=== PATIENT | male | born 1940 | race Caucasian/White ===

== ENCOUNTER 2016-12-19 12:06 | Emergency (ER) | payer MEDICARE, BC ==
[2016-12-19] MEDS ORDERED: Sodium Chloride 0.9% 10 ML Syringe FLUSH PRN (12:29)
[2016-12-19] MEDS ORDERED: Sodium Chloride 0.9% 1,000 ML IV SCH (12:30)
[2016-12-19 13:15] LABS: CHLORIDE,CL 103 mmol/L (98-107); SODIUM,NA 138 mmol/L (136-145)
--- NOTE | 2016-12-19 14:06 | EDM.PDOC ---
ED HPI GENERAL MEDICAL PROBLEM - General Chief Complaint: General Stated Complaint: DIZZY Time Seen by Provider: 12/19/16 12:18 Source of Information: Reports: Patient History Limitations: Reports: No Limitations - History of Present Illness INITIAL COMMENTS - FREE TEXT/NARRATIVE: Presents to the emergency room today with complaints of low blood pressure; reports systolic blood pressure to be in the 70s over 40s diastolically. He also states he had a fast heart rate in the 140s. His other complaint is that he had some lightheadedness. At the time of his presentation here all of these symptoms were resolved. 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 Medical history includes hypertension and diabetes type 2 which is medication and diet controlled. Patient denies recent illness, recent contact with anyone ill, denies any travel outside of the country. Patient at this time also denies shortness of breath, nausea, vomiting, denies abdominal pain, fever, chills. Additionally patient does describe some problems with constipation, but he does deny any blood in his urine or stool. Medications include lisinopril 2.5 mg daily and metformin 1000 mg in the morning 500 mg in the evening. He is also taking Januvia, Lipitor 20 mg, cinnamon 500mg, aspirin 81mg, glucosamine-chondroitin 750-600 mg and vitamin D3 1000 unit. Onset: Today, Sudden Duration: Resolved Prior to Arrival Severity: Mild Context: Reports: Activity - Related Data Allergies Allergy/AdvReac Type Severity Reaction Status Date / Time Unable to Assess Allergy Unverified 12/19/16 13:00 Home Meds: Home Meds . [Unable to Verify Home Med List] 12/19/16 [History] Past Medical History Cardiovascular History: Reports: Hypertension Endocrine/Metabolic History: Reports: Diabetes, Type II Social & Family History - Tobacco Use Smoking Status *Q: Unknown Ever Smoked ED ROS GENERAL - Review of Systems Review Of Systems: See Below Constitutional: Reports: No Symptoms HEENT: Reports: No Symptoms Respiratory: Reports: No Symptoms Cardiovascular: Reports: No Symptoms Endocrine: Reports: No Symptoms GI/Abdominal: Reports: No Symptoms : Reports: No Symptoms Musculoskeletal: Reports: No Symptoms Skin: Reports: No Symptoms Neurological: Reports: No Symptoms Psychiatric: Reports: No Symptoms Hematologic/Lymphatic: Reports: No Symptoms Immunologic: Reports: No Symptoms Free Text/Narrative/Comment: Reports all symptoms 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, GENERAL - Physical Exam Exam: See Below Exam Limited By: No Limitations General Appearance: Alert, WD/WN, No Apparent Distress Eye Exam: Bilateral Eye: EOMI, PERRL Ears: Normal TMs Nose: Normal Inspection Throat/Mouth: Normal Inspection, Normal Oropharynx Head: Atraumatic, Normocephalic Neck: Normal Inspection, Supple, Non-Tender, Full Range of Motion Respiratory/Chest: No Respiratory Distress, Lungs Clear, Normal Breath Sounds, No Accessory Muscle Use, Chest Non-Tender Cardiovascular: Normal Peripheral Pulses, Regular Rate, Rhythm, No Edema, No Gallop, No JVD, No Murmur, No Rub GI/Abdominal: Normal Bowel Sounds, Soft, Non-Tender, No Organomegaly, No Distention, No Abnormal Bruit, No Mass Back Exam: Normal Inspection, Full Range of Motion, NT Extremities: Normal Inspection, Normal Range of Motion, Non-Tender, Normal Capillary Refill, No Pedal Edema Neurological: Alert, Oriented, CN II-XII Intact, Normal Cognition, Normal Gait, Normal Reflexes, No Motor/Sensory Deficits Psychiatric: Normal Affect, Normal Mood Skin Exam: Warm, Dry, Intact, Normal Color, No Rash Lymphatic: No Adenopathy Course - Vital Signs Last Recorded V/S: Last Vital Signs Temp 36.7 C 12/19/16 12:10 Pulse 107 H 12/19/16 12:10 Resp 18 12/19/16 12:10 BP 113/77 12/19/16 12:10 Pulse Ox 97 12/19/16 12:10 - Orders/Labs/Meds Orders: Active Orders 24 hr Category Date Time Status EKG Documentation Completion [RC] ROUTINE Care 12/19/16 12:29 Ordered Chest 2V [CR] Stat Exams 12/19/16 12:29 Taken Sodium Chloride 0.9% @ 150 MLS/HR (1000ml) Med 12/19/16 12:30 Ordered Sodium Chloride 0.9% [Normal Saline] 1,000 ml IV ASDIRECTED Sodium Chloride 0.9% [Saline Flush] Med 12/19/16 12:29 Ordered 10 ml FLUSH ASDIRECTED PRN Saline Lock Insert [OM.PC] Routine Oth 12/19/16 12:29 Ordered Medication Orders Sodium Chloride (Normal Saline) 1,000 mls @ 150 mls/hr IV ASDIRECTED DASIA Last Admin: 12/19/16 13:26 Dose: 150 mls/hr Sodium Chloride (Saline Flush) 10 ml FLUSH ASDIRECTED PRN PRN Reason: Keep Vein Open Labs: Laboratory Tests 12/19/16 12/19/16 12/19/16 Range/Units 12:40 12:40 12:40 WBC 7.1 (4.0-10.0) x10^3/uL RBC 4.85 (4.5-6.0) x10^6/uL Hgb 12.9 L (14.0-18.0) g/dL Hct 38.9 L (40.0-52.0) % MCV 80.2 (78.0-93.0) fL MCH 26.6 (26.0-32.0) pg MCHC 33.2 (32.0-36.0) g/dL RDW Coeff of Andry 13.8 (10.0-15.0) % Plt Count 195 (130-400) x10^3/uL Neut % (Auto) 77.4 (50.0-80.0) % Lymph % (Auto) 15.4 L (25.0-50.0) % [place] % (Auto) 6.2 (2.0-11.0) % Eos % (Auto) 0.6 (0.0-4.0) % Baso % (Auto) 0.4 (0.2-1.2) % Sodium 138 (136-145) mmol/L Potassium 5.0 (3.5-5.1) mmol/L Chloride 103 (98-107) mmol/L Carbon Dioxide 28 (21-32) mmol/L BUN 17 (7-18) mg/dL Creatinine 1.0 (0.70-1.30) mg/dL Est Cr Clr Drug Dosing TNP Estimated GFR (MDRD) > 60 Glucose 283 H (74-106) mg/dL Hemoglobin A1c 8.6 H (4.5-6.2) % Lactic Acid (0.4-2.0) mmol/L Calcium 9.3 (8.5-10.1) mg/dL Corrected Calcium 9.54 (8.5-10.1) mg/dL Total Bilirubin 0.5 (0.2-1.0) mg/dL AST 15 (15-37) U/L ALT 24 (16-63) U/L Alkaline Phosphatase 103 (46-116) U/L Troponin I < 0.017 (<=0.056) ng/mL NT-Pro-B Natriuret Pep 131 (<=450) pg/mL Total Protein 7.1 (6.4-8.2) g/dL Albumin 3.7 (3.4-5.0) g/dL Globulin 3.4 Albumin/Globulin Ratio 1.09 TSH, Ultra Sensitive 0.762 (0.358-3.74) uIU/mL Urine Color (YELLOW) Urine Appearance (CLEAR) Urine pH (5.0-8.0) Ur Specific [place] Urine Protein (NEGATIVE) mg/dL Urine Glucose (UA) (NEGATIVE) mg/dL Urine Ketones (NEGATIVE) mg/dL Urine Occult Blood (NEGATIVE) Urine Nitrite (NEGATIVE) Urine Bilirubin (NEGATIVE) Urine Urobilinogen (0.2) EU/dL Ur Leukocyte Esterase (NEGATIVE) Urine RBC (NOT SEEN) /HPF Urine WBC (NOT SEEN) /HPF Ur Squamous Epith Cells (NEGATIVE) /HPF Urine Bacteria (NEGATIVE) /HPF Urine Mucus (NEGATIVE) /LPF 12/19/16 12/19/16 Range/Units 13:00 13:23 WBC (4.0-10.0) x10^3/uL RBC (4.5-6.0) x10^6/uL Hgb (14.0-18.0) g/dL Hct (40.0-52.0) % MCV (78.0-93.0) fL MCH (26.0-32.0) pg MCHC (32.0-36.0) g/dL RDW Coeff of Andry (10.0-15.0) % Plt Count (130-400) x10^3/uL Neut % (Auto) (50.0-80.0) % Lymph % (Auto) (25.0-50.0) % [place] % (Auto) (2.0-11.0) % Eos % (Auto) (0.0-4.0) % Baso % (Auto) (0.2-1.2) % Sodium (136-145) mmol/L Potassium (3.5-5.1) mmol/L Chloride (98-107) mmol/L Carbon Dioxide (21-32) mmol/L BUN (7-18) mg/dL Creatinine (0.70-1.30) mg/dL Est Cr Clr Drug Dosing Estimated GFR (MDRD) Glucose (74-106) mg/dL Hemoglobin A1c (4.5-6.2) % Lactic Acid 1.3 (0.4-2.0) mmol/L Calcium (8.5-10.1) mg/dL Corrected Calcium (8.5-10.1) mg/dL Total Bilirubin (0.2-1.0) mg/dL AST (15-37) U/L ALT (16-63) U/L Alkaline Phosphatase (46-116) U/L Troponin I (<=0.056) ng/mL NT-Pro-B Natriuret Pep (<=450) pg/mL Total Protein (6.4-8.2) g/dL Albumin (3.4-5.0) g/dL Globulin Albumin/Globulin Ratio TSH, Ultra Sensitive (0.358-3.74) uIU/mL Urine Color Dark yellow H (YELLOW) Urine Appearance Slightly cloudy H (CLEAR) Urine pH 5.5 (5.0-8.0) Ur Specific [place] 1.020 Urine Protein Negative (NEGATIVE) mg/dL Urine Glucose (UA) 500 H (NEGATIVE) mg/dL Urine Ketones Negative (NEGATIVE) mg/dL Urine Occult Blood Negative (NEGATIVE) Urine Nitrite Negative (NEGATIVE) Urine Bilirubin Negative (NEGATIVE) Urine Urobilinogen 0.2 (0.2) EU/dL Ur Leukocyte Esterase Negative (NEGATIVE) Urine RBC 0-5 (NOT SEEN) /HPF Urine WBC 0-5 (NOT SEEN) /HPF Ur Squamous Epith Cells Not seen (NEGATIVE) /HPF Urine Bacteria Rare (NEGATIVE) /HPF Urine Mucus Moderate H (NEGATIVE) /LPF Meds: Medications Generic Name Dose Route Start Last Admin Trade Name Freq PRN Reason Stop Dose Admin Sodium Chloride 1,000 mls @ 150 mls/hr 12/19/16 12:30 12/19/16 13:26 Normal Saline IV 150 mls/hr ASDIRECTED DASIA Administration Sodium Chloride 10 ml 12/19/16 12:29 Saline Flush FLUSH ASDIRECTED PRN Keep Vein Open Departure - Departure Time of Disposition: 14:17 Disposition: Home, Self-Care 01 Condition: Good Clinical Impression: Hypotension, Tachycardia - Discharge Information Instructions: Hypotension, [id number], Hypoglycemia, [id number], Diet for Metabolic Syndrome Additional Instructions: Follow up with your primary provider as needed for any additional symptoms. Make sure to eat in the morning before going out into the field. You ECG and Chest X-ray were non contributory to your symptoms today. Your labwork was normal with the exception of glucose in your urine, blood sugar of 284, and your hemoglobin A1C of 8.4. These are expected results in the setting of someone with known diabetes. Please call us if you have any further questions or concerns. - Problem List & Annotations (1) Hypotension SNOMED Code(s): 80107683 Code(s): I95.9 - HYPOTENSION, UNSPECIFIED Status: Acute Priority: Low Current Visit: Yes Qualifiers: Hypotension type: unspecified hypotension type Qualified Code(s): I95.9 - Hypotension, unspecified (2) Tachycardia SNOMED Code(s): 9700510 Code(s): R00.0 - TACHYCARDIA, UNSPECIFIED Status: Acute Priority: Low Current Visit: Yes - Problem List Review Problem List Initiated/Reviewed/Updated: Yes - My Orders Last 24 Hours: My Active Orders 12/19/16 12:29 EKG Documentation Completion [RC] ROUTINE Chest 2V [CR] Stat Sodium Chloride 0.9% [Saline Flush] 10 ml FLUSH ASDIRECTED PRN Saline Lock Insert [OM.PC] Routine 12/19/16 12:30 Sodium Chloride 0.9% @ 150 MLS/HR (1000ml) Sodium Chloride 0.9% [Normal Saline] 1,000 ml IV ASDIRECTED - Assessment/Plan Last 24 Hours: My Active Orders 12/19/16 12:29 EKG Documentation Completion [RC] ROUTINE Chest 2V [CR] Stat Sodium Chloride 0.9% [Saline Flush] 10 ml FLUSH ASDIRECTED PRN Saline Lock Insert [OM.PC] Routine 12/19/16 12:30 Sodium Chloride 0.9% @ 150 MLS/HR (1000ml) Sodium Chloride 0.9% [Normal Saline] 1,000 ml IV ASDIRECTED Assessment:: hypotension tachycardia Plan: Follow up with your primary provider as needed for any additional symptoms. Make sure to eat in the morning before going out into the field. You ECG and Chest X-ray were non contributory to your symptoms today. Your labwork was normal with the exception of glucose in your urine, blood sugar of 284, and your hemoglobin A1C of 8.4. These are expected results in the setting of someone with known diabetes. Please call us if you have any further questions or concerns.
== END 2016-12-19 14:25 | disposition home or self-care (01) ==
LOC: VM.ED 12:06
DX: I95.9 Hypotension, unspecified (principal); R00.0 Tachycardia, unspecified; I10 Essential (primary) hypertension; E11.9 Type 2 diabetes mellitus without complications
CPT/HCPCS: 36415; 71020; 80053; 81001; 83036; 83605; 83880; 84443; 84484; 85025; 93005; 96360; 99284; J7030

== ENCOUNTER 2019-04-10 12:08 | Emergency (ER) | payer MEDICARE, BC ==
--- NOTE | 2019-04-10 13:16 | EDM.PDOC ---
ED HPI GENERAL MEDICAL PROBLEM - General Chief Complaint: Cardiovascular Problem Stated Complaint: NOT FEELING WELL;HIGH BP Time Seen by Provider: 04/10/19 12:20 Source of Information: Reports: Patient, Family History Limitations: Reports: No Limitations - History of Present Illness INITIAL COMMENTS - FREE TEXT/NARRATIVE: Pt. presents to ER with complaints of lightheadedness. He states that he checked his blood pressure at home today when he was feeling lightheaded and states that his BP was 179/110 with a heart rate in the 140 range on his home BP monitor. He states that he is not currently taking any antihypertensives. He states that he is more lightheaded when he goes from sitting to standing and lying to sitting. Denies any recent illness. No fever or chills. No chest pain or shortness of breath. No nausea, vomiting, or diarrhea. No palpitation. Pt. denies any headache. No numbness/tingling in extremities/face. No trouble with speech or ambulation. He states that, by the time he arrived to [facility], he was feeling somewhat better. Onset: Today Location: Reports: Generalized Associated Symptoms: Denies: Confusion, Chest Pain, Cough, Diaphoresis, Fever/ Chills, Headaches, Malaise, Nausea/Vomiting, Rash, Seizure, Shortness of Breath , Syncope, Weakness - Related Data Allergies Allergy/AdvReac Type Severity Reaction Status Date / Time simvastatin Allergy Cannot Verified 04/10/19 12:28 Remember Home Meds: Home Meds Aspirin 81 mg PO DAILY 12/19/16 [History] Cholecalciferol (Vitamin D3) [Vitamin D3] 1,000 unit PO DAILY 12/19/16 [History] Cinnamon Bark [Cinnamon] 500 mg PO DAILY 12/19/16 [History] Glucosam/Chond/Collagen/Hyalur [Glucosamine Chondroitin] 1 each PO DAILY [History] SitaGLIPtin [Januvia] 100 mg PO DAILY 12/19/16 [History] metFORMIN [Glucophage XR] 1,000 mg PO ACBREAKFAST 12/19/16 [History] metFORMIN [Glucophage XR] 500 mg PO ACDINNER 12/19/16 [History] Past Medical History Cardiovascular History: Reports: High Cholesterol, Hypertension Endocrine/Metabolic History: Reports: Diabetes, Type II Social & Family History - Tobacco Use Smoking Status *Q: Unknown Ever Smoked ED ROS GENERAL - Review of Systems Review Of Systems: See Below Constitutional: Reports: No Symptoms HEENT: Reports: No Symptoms Respiratory: Reports: No Symptoms Cardiovascular: Reports: Lightheadedness Endocrine: Reports: No Symptoms GI/Abdominal: Reports: No Symptoms : Reports: No Symptoms Musculoskeletal: Reports: No Symptoms Skin: Reports: No Symptoms Neurological: Reports: No Symptoms Psychiatric: Reports: No Symptoms Hematologic/Lymphatic: Reports: No Symptoms Immunologic: Reports: No Symptoms ED EXAM, GENERAL - Physical Exam Exam: See Below Exam Limited By: No Limitations General Appearance: Alert, WD/WN, No Apparent Distress Eye Exam: Bilateral Eye: EOMI, Normal Fundi, Normal Inspection, PERRL Nose: Normal Inspection, Normal Mucosa, No Blood Throat/Mouth: Normal Inspection, Normal Lips, Normal Gums, Normal Oropharynx, Normal Voice, No Airway Compromise Head: Atraumatic, Normocephalic Neck: Normal Inspection, Supple, Non-Tender, Full Range of Motion Respiratory/Chest: No Respiratory Distress, Lungs Clear, Normal Breath Sounds, No Accessory Muscle Use, Chest Non-Tender Cardiovascular: Normal Peripheral Pulses, Regular Rate, Rhythm, No Edema, No Gallop, No JVD, No Murmur Peripheral Pulses: 4+: Radial (L) GI/Abdominal: Normal Bowel Sounds, Soft, Non-Tender, No Organomegaly, No Distention, No Mass, Pelvis Stable (Male) Exam: Deferred Rectal (Males) Exam: Deferred Back Exam: Normal Inspection, Full Range of Motion Extremities: Normal Inspection, Normal Range of Motion, Non-Tender, No Pedal Edema, Normal Capillary Refill Neurological: Alert, Oriented, CN II-XII Intact, Normal Cognition, Normal Gait, Normal Reflexes, No Motor/Sensory Deficits Psychiatric: Normal Affect, Normal Mood Skin Exam: Warm, Dry, Intact, Normal Color, No Rash Lymphatic: No Adenopathy EKG INTERPRETATION Rhythm: NSR [place]: Normal P-Wave: Present QRS: LBBB (Borderline LBBB, unchanged from previous EKG in 2017) ST-T: Normal QT: Normal Course - Vital Signs Last Recorded V/S: Last Vital Signs Temp 36.6 C 04/10/19 13:30 Pulse 88 04/10/19 13:30 Resp 16 04/10/19 13:30 BP 135/82 04/10/19 13:30 Pulse Ox 97 04/10/19 13:30 - Orders/Labs/Meds Orders: Active Orders 24 hr Category Date Time Status EKG Documentation Completion [RC] STAT Care 04/10/19 12:40 Active Labs: Laboratory Tests 04/10/19 04/10/19 04/10/19 Range/Units 12:57 12:59 12:59 WBC 7.5 (4.0-10.0) x10^3/uL RBC 5.28 (4.5-6.0) x10^6/uL Hgb 13.4 L (14.0-18.0) g/dL Hct 41.1 (40.0-52.0) % MCV 77.8 L (78.0-93.0) fL MCH 25.4 L (26.0-32.0) pg MCHC 32.6 (32.0-36.0) g/dL RDW Coeff of Andry 14.9 (10.0-15.0) % Plt Count 270 D (130-400) x10^3/uL Neut % (Auto) 78.3 (50.0-80.0) % Lymph % (Auto) 13.6 L (25.0-50.0) % [place] % (Auto) 6.8 (2.0-11.0) % Eos % (Auto) 0.8 (0.0-4.0) % Baso % (Auto) 0.5 (0.2-1.2) % PT 9.9 L (10.0-12.8) SEC INR 0.9 L (2.0-3.5) Sodium (136-145) mmol/L Potassium (3.5-5.1) mmol/L Chloride (98-107) mmol/L Carbon Dioxide (21-32) mmol/L Anion Gap (10-20) mmol/L BUN (7-18) mg/dL Creatinine (0.70-1.30) mg/dL Est Cr Clr Drug Dosing Estimated GFR (MDRD) Glucose (74-106) mg/dL Calcium (8.5-10.1) mg/dL Corrected Calcium (8.5-10.1) mg/dL Phosphorus (2.6-4.7) mg/dL Magnesium (1.8-2.4) mg/dL Total Bilirubin (0.2-1.0) mg/dL AST (15-37) U/L ALT (16-63) U/L Alkaline Phosphatase (46-116) U/L Troponin I (<=0.056) ng/mL NT-Pro-B Natriuret Pep (<=450) pg/mL Total Protein (6.4-8.2) g/dL Albumin (3.4-5.0) g/dL Globulin Albumin/Globulin Ratio TSH, Ultra Sensitive (0.358-3.74) uIU/mL Urine Color Yellow (YELLOW) Urine Appearance Slightly cloudy H (CLEAR) Urine pH 5.5 (5.0-8.0) Ur Specific [place] >=1.030 Urine Protein Negative (NEGATIVE) mg/dL Urine Glucose (UA) 250 H (NEGATIVE) mg/dL Urine Ketones Negative (NEGATIVE) mg/dL Urine Occult Blood Negative (NEGATIVE) Urine Nitrite Negative (NEGATIVE) Urine Bilirubin Negative (NEGATIVE) Urine Urobilinogen 0.2 (0.2) EU/dL Ur Leukocyte Esterase Negative (NEGATIVE) Urine RBC 0-5 (NOT SEEN) /HPF Urine WBC Not seen (NOT SEEN) /HPF Ur Squamous Epith Cells Not seen (NEGATIVE) /HPF Urine Bacteria Rare (NEGATIVE) /HPF Hyaline Casts Few H (NEGATIVE) /HPF Urine Mucus Moderate H (NEGATIVE) /LPF 04/10/19 Range/Units 12:59 WBC (4.0-10.0) x10^3/uL RBC (4.5-6.0) x10^6/uL Hgb (14.0-18.0) g/dL Hct (40.0-52.0) % MCV (78.0-93.0) fL MCH (26.0-32.0) pg MCHC (32.0-36.0) g/dL RDW Coeff of Andry (10.0-15.0) % Plt Count (130-400) x10^3/uL Neut % (Auto) (50.0-80.0) % Lymph % (Auto) (25.0-50.0) % [place] % (Auto) (2.0-11.0) % Eos % (Auto) (0.0-4.0) % Baso % (Auto) (0.2-1.2) % PT (10.0-12.8) SEC INR (2.0-3.5) Sodium 140 (136-145) mmol/L Potassium 5.0 (3.5-5.1) mmol/L Chloride 101 (98-107) mmol/L Carbon Dioxide 29 (21-32) mmol/L Anion Gap 15.0 (10-20) mmol/L BUN 15 (7-18) mg/dL Creatinine 1.1 (0.70-1.30) mg/dL Est Cr Clr Drug Dosing TNP Estimated GFR (MDRD) > 60 Glucose 202 H (74-106) mg/dL Calcium 9.0 (8.5-10.1) mg/dL Corrected Calcium 9.16 (8.5-10.1) mg/dL Phosphorus 3.3 (2.6-4.7) mg/dL Magnesium 2.0 (1.8-2.4) mg/dL Total Bilirubin 0.5 (0.2-1.0) mg/dL AST 15 (15-37) U/L ALT 20 (16-63) U/L Alkaline Phosphatase 136 H (46-116) U/L Troponin I < 0.017 (<=0.056) ng/mL NT-Pro-B Natriuret Pep 375 (<=450) pg/mL Total Protein 8.0 (6.4-8.2) g/dL Albumin 3.8 (3.4-5.0) g/dL Globulin 4.2 Albumin/Globulin Ratio 0.90 TSH, Ultra Sensitive 1.085 (0.358-3.74) uIU/mL Urine Color (YELLOW) Urine Appearance (CLEAR) Urine pH (5.0-8.0) Ur Specific [place] Urine Protein (NEGATIVE) mg/dL Urine Glucose (UA) (NEGATIVE) mg/dL Urine Ketones (NEGATIVE) mg/dL Urine Occult Blood (NEGATIVE) Urine Nitrite (NEGATIVE) Urine Bilirubin (NEGATIVE) Urine Urobilinogen (0.2) EU/dL Ur Leukocyte Esterase (NEGATIVE) Urine RBC (NOT SEEN) /HPF Urine WBC (NOT SEEN) /HPF Ur Squamous Epith Cells (NEGATIVE) /HPF Urine Bacteria (NEGATIVE) /HPF Hyaline Casts (NEGATIVE) /HPF Urine Mucus (NEGATIVE) /LPF - Radiology Interpretation Free Text/Narrative:: Chest x-ray negative for acute pathology Departure - Departure Time of Disposition: 15:00 Disposition: Home, Self-Care 01 Clinical Impression: Dehydration Instructions: Dehydration, Adult, [id number] Referrals: Chris Minaya MD [Primary Care Provider] - Forms: ED Department Discharge Additional Instructions: Home to rest. Drink plenty of fluids. Return to ER if you have chest pain, shortness of breath, or other worrisome signs/symptoms. Recheck in clinic in 1 week. Sepsis Event Note - Evaluation Sepsis Screening Result: No Definite Risk - Focused Exam Vital Signs: Vital Signs Temp Pulse Resp BP Pulse Ox 04/10/19 13:30 36.6 C 88 16 135/82 97 04/10/19 12:12 36.9 C 90 18 122/72 98 Date Exam was Performed: 04/10/19 Time Exam was Performed: 16:35 - Problem List Review Problem List Initiated/Reviewed/Updated: Yes - My Orders Last 24 Hours: My Active Orders 04/10/19 12:40 EKG Documentation Completion [RC] STAT - Assessment/Plan Last 24 Hours: My Active Orders 04/10/19 12:40 EKG Documentation Completion [RC] STAT Plan: Pt. was observed and discharged. Labs were all within normal limits. Troponin was negative. EKG was normal. His urine spec gravity was 1.030 and his oral mucosa was somewhat dry. It appears he is dehydrated. He is not experiencing any nausea, vomiting, or diarrhea so we will allow him to rehydrate orally. Recheck in clinic in 1 week. Return if he has chest pain, shortness of breath, palpitations or other worrisome signs/symptoms.
--- NOTE | 2019-04-10 13:20 | CR ---
[id number] RAD/RAD Chest PA And Lateral EXAM: RAD Chest PA And Lateral INDICATION: SYNCOPE, BRADYCARDIA COMPARISON: December 19, 2016. DISCUSSION: Cardiomediastinal silhouette is normal in size and contour. No infiltrate, effusion, pneumothorax, or edema. Pulmonary hyperinflation. IMPRESSION: No significant cardiopulmonary abnormality. Shaquille Shi DO 04/10/19 1319 Thank you for allowing us to participate in the care of your patient.
[2019-04-10 13:36] LABS: CHLORIDE,CL 101 mmol/L (98-107); SODIUM,NA 140 mmol/L (136-145)
== END 2019-04-10 13:51 | disposition home or self-care (01) ==
LOC: VM.ED 12:08
DX: E86.0 Dehydration (principal); I10 Essential (primary) hypertension; E11.9 Type 2 diabetes mellitus without complications; E78.00 Pure hypercholesterolemia, unspecified; Z79.82 Long term (current) use of aspirin; Z79.84 Long term (current) use of oral hypoglycemic drugs; Z79.899 Other long term (current) drug therapy
CPT/HCPCS: 36415; 71046; 80053; 81001; 83735; 83880; 84100; 84443; 84484; 85025; 85610; 93005; 93010; 99284-25; 99284-GF

== ENCOUNTER 2019-10-04 15:23 | Emergency (ER) | payer MEDICARE, BC ==
--- NOTE | 2019-10-04 16:14 | EDM.PDOC ---
ED HPI GENERAL MEDICAL PROBLEM - General Chief Complaint: ENT Problem Stated Complaint: PART OF HEARING AID STUCK IN EAR Time Seen by Provider: 10/04/19 16:00 Source of Information: Reports: Patient History Limitations: Reports: No Limitations - History of Present Illness INITIAL COMMENTS - FREE TEXT/NARRATIVE: Patient presents to ER with a portion of his hearing aide stuck in his right ear. States took his aides out a few hours ago and noted the rubber portion was not intact and felt still present in ear. could visualize but did not have anything at home in order to remove it. No other concerns. Onset: Today, Sudden Duration: Hour(s): Location: Reports: Head Associated Symptoms: Reports: No Other Symptoms - Related Data Allergies Allergy/AdvReac Type Severity Reaction Status Date / Time simvastatin Allergy Cannot Verified 04/10/19 12:28 Remember Home Meds: Home Meds Aspirin 81 mg PO DAILY 12/19/16 [History] Cholecalciferol (Vitamin D3) [Vitamin D3] 1,000 unit PO DAILY 12/19/16 [History] Cinnamon Bark [Cinnamon] 500 mg PO DAILY 12/19/16 [History] Glucosam/Chond/Collagen/Hyalur [Glucosamine Chondroitin] 1 each PO DAILY 12/19/16 [History] SitaGLIPtin [Januvia] 100 mg PO DAILY 12/19/16 [History] metFORMIN [Glucophage XR] 1,000 mg PO ACBREAKFAST 12/19/16 [History] metFORMIN [Glucophage XR] 500 mg PO ACDINNER 12/19/16 [History] Past Medical History Cardiovascular History: Reports: High Cholesterol, Hypertension Endocrine/Metabolic History: Reports: Diabetes, Type II Social & Family History - Tobacco Use Smoking Status *Q: Unknown Ever Smoked ED ROS ENT - Review of Systems Review Of Systems: Comprehensive ROS is negative, except as noted in HPI. ED EXAM, ENT - Physical Exam Exam: See Below Exam Limited By: No Limitations General Appearance: Alert, WD/WN, No Apparent Distress Ears: Normal TMs (to left ear), Canal Foreign Body (had rubber tip lodged in to right ear canal. Removed without incident with alligator forcep. Patient tolerated well) Neurological: Alert, Oriented Skin: Warm, Dry Departure - Departure Time of Disposition: 16:13 Disposition: Home, Self-Care 01 Condition: Good Clinical Impression: Foreign body in ear - Discharge Information *PRESCRIPTION DRUG MONITORING PROGRAM REVIEWED*: No *COPY OF PRESCRIPTION DRUG MONITORING REPORT IN PATIENT CLAUDIA: No Instructions: Ear Foreign Body, [id number] Referrals: Chris Minaya MD [Primary Care Provider] - Forms: ED Department Discharge Additional Instructions: 1. Rinse ear with water as needed due to irritation caused by removal of foreign body. 2. Notify primary care provider of any increase in pain or drainage from ear
== END 2019-10-04 16:24 | disposition home or self-care (01) ==
LOC: VM.ED 15:23
DX: T16.1XXA Foreign body in right ear, initial encounter (principal); I10 Essential (primary) hypertension; E11.9 Type 2 diabetes mellitus without complications; Z88.8 Allergy status to other drugs, medicaments and biological substances; Z79.82 Long term (current) use of aspirin; Z79.899 Other long term (current) drug therapy; Z79.84 Long term (current) use of oral hypoglycemic drugs
CPT/HCPCS: 99282; 99283-GF

== ENCOUNTER 2020-12-13 13:23 | Observation (INO) | payer MEDICARE, BC ==
[2020-12-13] MEDS ORDERED: Sodium Chloride 0.9% 10 ML Syringe FLUSH PRN (13:39)
--- NOTE | 2020-12-13 14:06 | CR ---
[id number] RAD/RAD Chest Portable EXAM: RAD Chest Portable INDICATION: PALPITATIONS COMPARISON: April 10, 2019. DISCUSSION/IMPRESSION: Cardiomediastinal silhouette is normal in size and contour. Lungs are clear. No pleural effusion or pneumothorax. Per Brandon MD 12/13/20 [id number] Thank you for allowing us to participate in the care of your patient.
[2020-12-13 14:25] LABS: ANION GAP 17.6 mmol/L (5-15); CHLORIDE,CL 105 mmol/L (98-107); SODIUM,NA 140 mmol/L (136-145)
--- NOTE | 2020-12-13 16:30 | EDM.PDOC ---
ED HPI GENERAL MEDICAL PROBLEM - General Chief Complaint: Cardiovascular Problem Stated Complaint: HEART PULSE HIGH Time Seen by Provider: 12/13/20 13:25 Source of Information: Reports: Patient History Limitations: Reports: No Limitations - History of Present Illness INITIAL COMMENTS - FREE TEXT/NARRATIVE: Pt. has had intermittent episodes of racing heart today. He states that he used his 's blood pressure machine today when this was happening and his heart rate read 140. He was experiencing some lightheadedness with this. He denies any chest pain but was short of breath with exertion when the palpitations were happening. He was experiencing some palpitations on arrival to ER. EKG was performed by nursing and pt. was found in a narrow complex tachycardia at a rate of 140. He subsequently converted back to a sinus rhythm at 80-90 without intervention and remained in this rhythm during the remainder of his stay in ER. Pt. PCP is Dr. Gómez Minaya in [place]. He has a history of non-ischemic cardiomyopathy. He is followed by Dr. Collazo. Last echo showed EF of approx. 40-45%. Currently, pt. denies any chest pain, shortness of breath, lightheadedness, palpitations, increased peripheral edema, nausea, vomiting, or weakness. No recent fever or chills. He has had both moderna vaccinations. Onset: Today Onset Date: 12/13/20 Location: Reports: Chest, Generalized - Related Data Allergies Allergy/AdvReac Type Severity Reaction Status Date / Time simvastatin Allergy Cannot Verified 10/04/19 18:40 Remember Home Meds: Home Meds Aspirin 81 mg PO DAILY 12/19/16 [History] Cholecalciferol (Vitamin D3) [Vitamin D3] 1,000 unit PO DAILY 12/19/16 [History] Cinnamon Bark [Cinnamon] 500 mg PO DAILY 12/19/16 [History] SitaGLIPtin [Januvia] 100 mg PO DAILY 12/19/16 [History] metFORMIN [Glucophage XR] 1,000 mg PO ACBREAKFAST 12/19/16 [History] metFORMIN [Glucophage XR] 500 mg PO ACDINNER 12/19/16 [History] Olopatadine [Pataday 0.2% Ophth Soln] 1 drop EYEBOTH BEDTIME 12/13/20 [History] atorvaSTATin [Lipitor] 20 mg PO BEDTIME 12/13/20 [History] carvediloL [Coreg] 3.125 mg PO BID 12/13/20 [History] Past Medical History Cardiovascular History: Reports: High Cholesterol, Hypertension Endocrine/Metabolic History: Reports: Diabetes, Type II - Infectious Disease History Infectious Disease History: Reports: None Social & Family History - Tobacco Use Tobacco Use Status *Q: Never Tobacco User - Recreational Drug Use Recreational Drug Use: No ED ROS GENERAL - Review of Systems Review Of Systems: See Below Constitutional: Reports: No Symptoms HEENT: Reports: No Symptoms Respiratory: Reports: Shortness of Breath (with exertion) Cardiovascular: Reports: Lightheadedness, Palpitations Endocrine: Reports: No Symptoms GI/Abdominal: Reports: No Symptoms : Reports: No Symptoms Musculoskeletal: Reports: No Symptoms Skin: Reports: No Symptoms Neurological: Reports: No Symptoms Psychiatric: Reports: No Symptoms Hematologic/Lymphatic: Reports: No Symptoms Immunologic: Reports: No Symptoms ED EXAM, GENERAL - Physical Exam Exam: See Below Exam Limited By: No Limitations General Appearance: Alert, WD/WN, No Apparent Distress Throat/Mouth: Normal Inspection, Normal Lips, Normal Teeth, Normal Gums, Normal Oropharynx, Normal Voice, No Airway Compromise Head: Atraumatic, Normocephalic Neck: Normal Inspection, Supple, Non-Tender, Full Range of Motion Respiratory/Chest: No Respiratory Distress, Lungs Clear, Normal Breath Sounds, No Accessory Muscle Use, Chest Non-Tender Cardiovascular: Normal Peripheral Pulses, Regular Rate, Rhythm, No Edema, No JVD, No Murmur GI/Abdominal: Normal Bowel Sounds, Soft, Non-Tender, No Organomegaly, No Distention, No Mass (Male) Exam: Deferred Rectal (Males) Exam: Deferred Back Exam: Normal Inspection, Full Range of Motion Extremities: Normal Inspection, Normal Range of Motion, Non-Tender, No Pedal Edema, Normal Capillary Refill Neurological: Alert, Oriented, CN II-XII Intact, Normal Cognition, No Motor/Sensory Deficits Psychiatric: Normal Affect, Normal Mood Skin Exam: Warm, Dry, Intact, Normal Color, No Rash Lymphatic: No Adenopathy #1 Interpretation Comparison: Change From Previous EKG EKG Interpretation Comments: SVT vs. junctional tach Course - Vital Signs Last Recorded V/S: Last Vital Signs Temp 36.0 C L 12/13/20 13:25 Pulse 144 H 12/13/20 13:25 Resp 16 12/13/20 13:25 BP 149/82 H 12/13/20 13:25 Pulse Ox 98 12/13/20 13:25 - Orders/Labs/Meds Orders: Active Orders 24 hr Category Date Time Status Patient Status [ADT] Routine ADT 12/13/20 15:58 Active CORONAVIRUS COVID-19 RAPID [MOLEC] Stat Lab 12/13/20 16:01 Received Sodium Chloride 0.9% [Saline Flush] Med 12/13/20 13:39 Active 10 ml FLUSH ASDIRECTED PRN Peripheral IV Insertion Adult [OM.PC] Routine Oth 12/13/20 13:40 Ordered Medication Orders Sodium Chloride (Sodium Chloride 0.9% 10 Ml Syringe) 10 ml FLUSH ASDIRECTED PRN PRN Reason: Keep Vein Open Labs: Laboratory Tests 12/13/20 12/13/20 12/13/20 Range/Units 13:40 13:40 13:40 WBC 6.7 (4.0-10.0) x10^3/uL RBC 4.89 (4.5-6.0) x10^6/uL Hgb 13.0 L (14.0-18.0) g/dL Hct 38.7 L (40.0-52.0) % MCV 79.1 (78.0-93.0) fL MCH 26.6 (26.0-32.0) pg MCHC 33.6 (32.0-36.0) g/dL RDW Coeff of Andry 14.3 (10.0-15.0) % Plt Count 220 (130-400) x10^3/uL Immature Gran % (Auto) 0.10 (0.00-0.43) % Neut % (Auto) 67.6 (50.0-80.0) % Lymph % (Auto) 21.0 L (25.0-50.0) % [place] % (Auto) 9.1 (2.0-11.0) % Eos % (Auto) 1.8 (0.0-4.0) % Baso % (Auto) 0.4 (0.2-1.2) % Neut # (Auto) 4.5 (1.8-7.7) x10^3/uL Lymph # (Auto) 1.4 (1.0-4.8) x10^3/uL [place] # (Auto) 0.6 (0.0-0.8) x10^3/uL Eos # (Auto) 0.1 (0.0-0.5) x10^3/uL Baso # (Auto) 0.0 (0.0-0.2) x10^3/uL Immature Gran # (Auto) 0.01 (0.00-0.07) x10^3/uL PT 10.4 (9.9-12.5) SEC INR 0.9 L (2.0-3.5) APTT (25.6-32.8) SEC Sodium 140 (136-145) mmol/L Potassium 4.6 (3.5-5.1) mmol/L Chloride 105 (98-107) mmol/L Carbon Dioxide 22 (21-32) mmol/L Anion Gap 17.6 H (5-15) mmol/L BUN 14 (7-18) mg/dL Creatinine 0.9 (0.70-1.30) mg/dL Est Cr Clr Drug Dosing TNP Estimated GFR (MDRD) > 60 Glucose 184 H (70-99) mg/dL Calcium 9.1 (8.5-10.1) mg/dL Corrected Calcium 9.3 (8.5-10.1) mg/dL Phosphorus 3.9 (2.6-4.7) mg/dL Magnesium 2.0 (1.8-2.4) mg/dL Total Bilirubin 0.5 (0.2-1.0) mg/dL AST 16 (15-37) U/L ALT 19 (16-63) U/L Alkaline Phosphatase 99 (46-116) U/L Troponin I High Sens 11 (<=76) ng/L C-Reactive Protein < 0.2 (<=0.9) mg/dL NT-Pro-B Natriuret Pep 546 H (<=450) pg/mL Total Protein 7.2 (6.4-8.2) g/dL Albumin 3.8 (3.4-5.0) g/dL Globulin 3.4 Albumin/Globulin Ratio 1.12 TSH, Ultra Sensitive 1.063 (0.358-3.74) uIU/mL 12/13/20 Range/Units 13:40 WBC (4.0-10.0) x10^3/uL RBC (4.5-6.0) x10^6/uL Hgb (14.0-18.0) g/dL Hct (40.0-52.0) % MCV (78.0-93.0) fL MCH (26.0-32.0) pg MCHC (32.0-36.0) g/dL RDW Coeff of Andry (10.0-15.0) % Plt Count (130-400) x10^3/uL Immature Gran % (Auto) (0.00-0.43) % Neut % (Auto) (50.0-80.0) % Lymph % (Auto) (25.0-50.0) % [place] % (Auto) (2.0-11.0) % Eos % (Auto) (0.0-4.0) % Baso % (Auto) (0.2-1.2) % Neut # (Auto) (1.8-7.7) x10^3/uL Lymph # (Auto) (1.0-4.8) x10^3/uL [place] # (Auto) (0.0-0.8) x10^3/uL Eos # (Auto) (0.0-0.5) x10^3/uL Baso # (Auto) (0.0-0.2) x10^3/uL Immature Gran # (Auto) (0.00-0.07) x10^3/uL PT (9.9-12.5) SEC INR (2.0-3.5) APTT 25.6 (25.6-32.8) SEC Sodium (136-145) mmol/L Potassium (3.5-5.1) mmol/L Chloride (98-107) mmol/L Carbon Dioxide (21-32) mmol/L Anion Gap (5-15) mmol/L BUN (7-18) mg/dL Creatinine (0.70-1.30) mg/dL Est Cr Clr Drug Dosing Estimated GFR (MDRD) Glucose (70-99) mg/dL Calcium (8.5-10.1) mg/dL Corrected Calcium (8.5-10.1) mg/dL Phosphorus (2.6-4.7) mg/dL Magnesium (1.8-2.4) mg/dL Total Bilirubin (0.2-1.0) mg/dL AST (15-37) U/L ALT (16-63) U/L Alkaline Phosphatase (46-116) U/L Troponin I High Sens (<=76) ng/L C-Reactive Protein (<=0.9) mg/dL NT-Pro-B Natriuret Pep (<=450) pg/mL Total Protein (6.4-8.2) g/dL Albumin (3.4-5.0) g/dL Globulin Albumin/Globulin Ratio TSH, Ultra Sensitive (0.358-3.74) uIU/mL Meds: Medications Generic Name Dose Route Start Last Admin Trade Name Freq PRN Reason Stop Dose Admin Sodium Chloride 10 ml 12/13/20 13:39 Sodium Chloride 0.9% 10 Ml Syringe FLUSH ASDIRECTED PRN Keep Vein Open Departure - Departure Time of Disposition: 16:39 Disposition: Refer to Observation Clinical Impression: SVT (supraventricular tachycardia), Palpitations Sepsis Event Note (ED) - Evaluation Sepsis Screening Result: No Definite Risk - Focused Exam Vital Signs: Vital Signs Temp Pulse Resp BP Pulse Ox 12/13/20 13:25 36.0 C L 144 H 16 149/82 H 98 - Problem List Review Problem List Initiated/Reviewed/Updated: Yes - My Orders Last 24 Hours: My Active Orders 12/13/20 13:39 Sodium Chloride 0.9% [Saline Flush] 10 ml FLUSH ASDIRECTED PRN 12/13/20 13:40 Peripheral IV Insertion Adult [OM.PC] Routine 12/13/20 15:58 Patient Status [ADT] Routine 12/13/20 16:01 CORONAVIRUS COVID-19 RAPID [MOLEC] Stat - Assessment/Plan Last 24 Hours: My Active Orders 12/13/20 13:39 Sodium Chloride 0.9% [Saline Flush] 10 ml FLUSH ASDIRECTED PRN 12/13/20 13:40 Peripheral IV Insertion Adult [OM.PC] Routine 12/13/20 15:58 Patient Status [ADT] Routine 12/13/20 16:01 CORONAVIRUS COVID-19 RAPID [MOLEC] Stat Plan: Discussed case with Dr. Alexandre, [facility]. He reviewed the EKG. He feels the rhythm is most likely actually SVT and advised trying adenosine if the symptoms redeveloped. He advised against increasing coreg at this point, and instead suggested using either starting dig or diltiazem. Dr. Dior will be admitting the patient observation.
[2020-12-13] MEDS ORDERED: atorvaSTATin 10 MG Tab PO SCH (20:00)
[2020-12-13] MEDS ORDERED: Non-Formulary Medication 1 Each (Olopatadine [Pataday 0.2% Ophth Soln] 2.5 ML Bottle) EYEBOTH SCH (20:00)
[2020-12-13] MEDS: Carvedilol 3.125 MG Tab PO SCH (20:07)
[2020-12-13] MEDS ORDERED: METFORMIN 500 MG PO SCH ×2 (20:15)
--- NOTE | 2020-12-13 23:20 | HP ---
CHIEF COMPLAINT: Racing heart rate, not feeling well. HISTORY OF PRESENT ILLNESS: This is an 80-year-old man who had no previous histories of heart problems who began doctoring for some shortness of breath earlier this spring and had an echo showing an EF of 40% to 45%. He has never had a heart attack. He has never had AFib. He was found to have an increased like 15% PVC burden and has been referred to EP and is going to see them later this month. He had a nuclear stress test in July, which did not show any high risk ischemia. He otherwise has not had any chest pain at all. He just woke up and did not quite feel well. He has been short of breath with activity, but that is not new. He did not feel like he might pass out. His drove him into [place]. His heart rates on the blood pressure cuff at home were 140 because he asked her to check his blood pressure because he had some lightheadedness. EKG was felt to show an SVT. The patient did have some coffee this morning. He states he pretty much drink too much coffee, though most his life. He has not been around anybody with COVID. He has been vaccinated. No fevers. No vomiting. Otherwise feeling well. EP did recommend trying adenosine if his symptoms return. He had lab work with a negative troponin, mildly elevated proBNP. In fact, his heart rate actually improved without any medicines or interventions down into sinus in the 90s. ALLERGIES: Simvastatin. MEDICATION LIST: Includes metformin 1000 in the morning and 500 in the evening, Glucotrol 2.5 daily, Coreg 6.25 b.i.d., Januvia 100 daily, Lipitor 20 mg at bedtime, aspirin 81 mg daily, lisinopril 2.5 daily, cinnamon, and vitamin D. PAST MEDICAL HISTORY: Includes chronic anemia, hemoglobins near baseline; type 2 diabetes; erectile dysfunction; essential hypertension; hyperlipidemia; low back pain, sees a chiropractor p.r.n.; obesity; osteoarthritis, hips and knees; tubular adenoma of the colon. PAST SURGICAL HISTORY: The patient has had hip surgery for left hip for arthritis, colonoscopies, and cataract extraction. FAMILY HISTORY: Both parents are . Mother had type 2 diabetes. He has a brother who is alive who has melanoma. SOCIAL HISTORY: The patient is . He is a never smoker. No reported alcohol use. [place] , but they were waiting to move into town. 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 REVIEW OF SYSTEMS: General: He is not aware of any fever, chills. No drastic weight changes. HEENT: No sore throat. No trouble swallowing. Cardiac: No chest pains. He noticed palpitation as though his heart was going faster. Respiratory: No cough but has been short of breath. GI: No nausea, vomiting, diarrhea. Otherwise, all systems reviewed and found to be negative unless otherwise stated. PHYSICAL EXAMINATION: Vital Signs: Weight 95.2 kg, temp 96.8, pulse is 88, blood pressure 149/82, respiratory rate 16, O2 of 98% on room air. General: He is in no acute distress. Heart: Regular rate and rhythm. S1, S2 without murmur. Lungs: Lung sounds are clear to auscultation bilaterally without crackles or wheezes. Abdomen: Positive bowel sounds. Soft, nondistended, nontender. Extremities: Warm and dry. No edema. Mental Status: He is alert, he is orientated x3. He is answering all questions appropriately. LABORATORY DATA: EKG, again SVT. Labs: White count 6.7, hemoglobin 13, platelets 220. INR 0.9. Sodium 140, potassium 4.6, chloride 105, bicarb 22, BUN 14, creatinine 0.9, glucose 184, calcium 9.1, magnesium 2. Bilirubin, ALT, AST all normal. Troponin 11. CRP 0.2. ProBNP mildly elevated at 546. Albumin 3.8. TSH 1.06. COVID negative. Chest x-ray also done. Chest x-ray looks like lungs are clear. No pleural effusion or pneumothorax. ASSESSMENT: 1. Supraventricular tachycardia. The patient has currently converted. 2. Dilated cardiomyopathy, possibly some tachycardia induced. He has a followup with EP later this month. 3. Type 2 diabetes, poorly controlled. A1c is over 8. We will do b.i.d. Accu- Cheks. 4. Essential hypertension. 5. Frequent premature ventricular contractions. 6. Hyperlipidemia. PLAN: The patient will be placed on observation and telemetry. If he has any recurrence of his SVT, we will try a dose of adenosine. We will continue his home medications, his did bring them along. We will keep Coreg the same at 3.125 b.i.d. unless he has some issues with more frequent PVCs or hypertension. The patient will follow up with his primary care and Cardiology through the clinic. If he is medically stable, anticipate discharge home as soon as tomorrow. He is code level 1. MKA: 12/13/2020 17:23:10 MODL: 12/13/2020 18:00:06 /[id number]
[2020-12-14] MEDS ORDERED: METFORMIN 500 MG PO SCH (07:00)
[2020-12-14] MEDS: Carvedilol 3.125 MG Tab PO SCH (08:00)
[2020-12-14] MEDS ORDERED: Aspirin 81 MG Tab.Chew PO SCH (08:00)
[2020-12-14] MEDS ORDERED: glipiZIDE 5 MG Tab PO SCH (08:30)
--- NOTE | 2020-12-14 20:42 | DISCH ---
PRIMARY DISCHARGE DIAGNOSES: 1. Supraventricular tachycardia, new onset, with known nonischemic cardiomyopathy and frequent premature ventricular complexes. 2. Uncontrolled diabetes. 3. Nonischemic cardiomyopathy, on appropriate medications. 4. Essential hypertension. 5. Hyperlipidemia. 6. Obesity. 7. Mild anemia, chronic REASON FOR ADMISSION: On the date of admission, this 80-year-old male, who lives at home with his , did wake up and had some more heart racing. Asked to get his blood pressure checked and was found to have a heart rate in the 140s and came into the ER. He converted back to a sinus rhythm without any intervention. This had not happened before, but he had been worked up over the last few months for shortness of breath with an echo showing an EF of 40% and frequent, like 15%, PVCs. He had a cardiac stress test with nuclear, which did not show any high-grade ischemia. The patient was monitored on telemetry. He had an uneventful night and he was discharged home to follow up in the clinic with electrophysiology, which is already scheduled for 12/30/2020, and potentially seeing his primary care sooner than 03/30. I should note, serial troponins were checked and all were negative. PHYSICAL EXAMINATION: Vital Signs: Discharging vitals today were temperature 98, pulse 69, blood pressure 123/61, respiratory rate 16, O2 of 99% on room air. General: He is in no acute distress Heart: Regular rate and rhythm. S1, S2 without murmur. Lungs: Sounds are clear to auscultation bilaterally without crackles or wheezes. Abdomen: Positive bowel sounds. Soft, nontender. Extremities: Warm and dry. No edema. Mental Status: Alert and orientated x3. It should be noted his blood sugars were like 144 through 184 here. It does seem that potentially at home he was taking 5 mg of glipizide daily instead of 2.5; we gave him 2.5 here. His hemoglobin was also mildly anemic at 13, but this was near his baseline. MKA: 12/14/2020 17:25:34 MODL: 12/14/2020 20:32:16 /[id number]
== END 2020-12-14 09:21 | disposition home or self-care (01) ==
LOC: VM.ED 13:23 → VM.MS 15:58
PROVIDERS: ADMIT Internal Medicine; ATTEND Internal Medicine
DX: I47.1 Supraventricular tachycardia (principal); E11.9 Type 2 diabetes mellitus without complications; E78.5 Hyperlipidemia, unspecified; E66.9 Obesity, unspecified; I42.0 Dilated cardiomyopathy; I10 Essential (primary) hypertension; I49.3 Ventricular premature depolarization; D64.9 Anemia, unspecified; Z20.822 Contact with and (suspected) exposure to COVID-19; Z88.8 Allergy status to other drugs, medicaments and biological substances; Z79.84 Long term (current) use of oral hypoglycemic drugs; Z79.899 Other long term (current) drug therapy
CPT/HCPCS: 36415; 71045; 80053; 82947; 83735; 83880; 84100; 84443; 84484; 85025; 85610; 85730; 86140; 90662; 93005; 93010; 99284; 99285-25; A9270-GY; G0008; G0378; U0002